=== PATIENT | male | born 1995 | race Caucasian/White ===

== ENCOUNTER 2017-06-24 12:18 | Day surgery (SDC) | payer BC ==
[2017-06-21 12:14] VITALS: BMI 27.8
[2017-06-24] VITALS (11 sets, daily range): BP systolic 99–119; BP diastolic 50–74; PULSE 64–86; RESP 11–68; Ht 172.7 cm; Wt 79.0 kg
[~2017-06-24] VITALS: Ht 172.7 cm; Wt 79.0 kg
[~2017-06-24 12:18] MED LIST: CEFAZOLIN 1 GM INJ ONE; CEFAZOLIN 2 GM/50 ML (PMX) 50 ML IVPB SCH; SOD CHLORIDE 0.9% 1,000 ML IV SCH
[2017-06-24] MEDS ORDERED: BUPIVACAINE 0.25% (MPF) 30 ML INJ ONE (13:29)
[2017-06-24] MEDS ORDERED: ESOM20CA PO (13:42)
[2017-06-24] MEDS ORDERED: PROPOFOL 20 ML ONE (15:10)
[2017-06-24] MEDS ORDERED: ROCURONIUM 50 MG INJ ONE (15:10)
[2017-06-24] MEDS ORDERED: MIDAZOLAM 1 MG/ML 2 ML INJ ONE (15:18)
[2017-06-24] MEDS ORDERED: DIPHENHYDRAMINE 50 MG INJ ONE (15:18)
[2017-06-24] MEDS ORDERED: FENTAnyl 50 MCG/ML VIAL ONE ×2 (15:18→15:32)
[2017-06-24] MEDS ORDERED: KETOROLAC 30 MG INJ ONE (15:28)
[2017-06-24] MEDS ORDERED: ONDANSETRON 4 MG INJ ONE (15:28)
[2017-06-24] MEDS ORDERED: METOCLOPRAMIDE 10 MG INJ ONE (15:28)
[2017-06-24] MEDS ORDERED: DEXAMETHASONE 4 MG/ML 1 ML INJ ONE (15:29)
[2017-06-24] MEDS ORDERED: ONDANSETRON 4 MG INJ IV PRN (15:30)
[2017-06-24] MEDS ORDERED: OXYCODONE/ACETAMINOPHEN (5/325) TAB PO PRN ×2 (15:30)
[2017-06-24] MEDS ORDERED: MEPERIDINE 25 MG INJ IV PRN (15:30)
[2017-06-24] MEDS ORDERED: LABETALOL HCL 20MG INJ IV PRN (15:30)
[2017-06-24] MEDS ORDERED: EPHEDrine SULFATE 50 MG/5 ML SYG IV PRN (15:30)
[2017-06-24] MEDS ORDERED: DIPHENHYDRAMINE 50 MG INJ IV PRN (15:30)
[2017-06-24] MEDS ORDERED: FENTAnyl 50 MCG/ML VIAL IV PRN ×3 (15:30)
[2017-06-24] MEDS ORDERED: METOCLOPRAMIDE 10 MG INJ IV PRN (15:30)
[2017-06-24] MEDS ORDERED: HYDROmorphONE (0.2 MG/ML) 10ML SYG IV PRN ×3 (15:30)
[2017-06-24] MEDS ORDERED: SUGAMMADEX SODIUM 200 MG/2 ML VIAL IV ONE (15:48)
--- NOTE | 2017-06-24 15:57 | OPR ---
Date/Time of Note Date/Time of Note DATE: 06/24/17 TIME: 15:53 Operative Report Procedure Date: Jun 24, 2017 Preoperative Diagnosis pilonidal cyst Postoperative Diagnosis infected pilonidal cyst with abscess pocket Operation Performed 1. pilonidal cystectomy 12 cm incision and 12 x 6 cm mass 2. localized adjacent tissue transfer with the use of skin flaps 72 sq cm defect 3. incision and drainage of abscess 4. therapeutic injection of subcutaneous marcaine cpt code [id number] Surgeon: Sohail JUAREZ Anesthesia Type: general Estimated Blood Loss: 0 - 10 ml's Specimens pilonidal cyst Grafts/Implants: none Complications: no Indications This is a 21-year-old male with a large spinal cyst. He appears to have abscess pocket. Request surgical excision risks alternatives benefits and percent were discussed the patient. Patient expresses understanding consents to the operation. Procedure Description She is taken to the OR and prepped and draped in usual sterile fashion. Surgical timeout was performed. IV antibiotics given. Using a 10 blade elliptical incision is made over the large pilonidal cyst. Dissection cautery was carried onto the base. Upon examination there was a abscess pocket. This area was incised and drained and irrigated thoroughly out. Hemostasis was established. This left a large tissue defect. Localized adjacent tissue transfer with these of skin flaps was performed. Closure and was in a multilayer fashion with interrupted 2-0 Vicryl and interrupted 2-0 nylon for the skin. Subcutaneous therapeutic Marcaine was injected throughout the incision site. Dry dressings were applied Sohail JUAREZ Jun 24, 2017 15:57
[2017-06-24] MEDS ORDERED: MEPERIDINE 100 MG INJ ONE (16:00)
[2017-06-24] MEDS ORDERED: AMOXICILLIN/CLAV 875 MG TAB PO ONE (16:00)
[2017-06-24] MEDS ORDERED: HYDROCODONE/APAP (5/325) TAB PO ONE (16:00)
== END 2017-06-24 17:20 | disposition home or self-care (01) ==
LOC: SDS 12:18
PROVIDERS: ATTEND Surgery
DX: L05.01 Pilonidal cyst with abscess (principal)
CPT/HCPCS: 11772; 88304; J0690; J1100; J1200; J1885; J2175; J2250; J2405; J2765; J3010; Z7512; Z7610

== ENCOUNTER 2017-08-02 21:46 | Emergency (ER) | payer BC ==
[~2017-08-02] VITALS: Ht 177.8 cm; Wt 79.5 kg
[~2017-08-02 21:46] MED LIST changes: -CEFAZOLIN 1 GM INJ ONE; -CEFAZOLIN 2 GM/50 ML (PMX) 50 ML IVPB SCH; +ESOM20CA PO; -SOD CHLORIDE 0.9% 1,000 ML IV SCH
[2017-08-02 21:50] VITALS: Ht 177.8 cm; Wt 79.5 kg
[2017-08-02] MEDS ORDERED: LIDOCAINE 2%/EPI MPF (SDV) 20 ML VIAL INJ STA (22:55)
[2017-08-02] MEDS ORDERED: CEPH-443 PO (23:19)
[2017-08-02] MEDS ORDERED: SULF1TAB31 PO (23:19)
--- NOTE | 2017-08-02 23:21 | ERD ---
ER Documentation Chief Complaint Date/Time DATE: 08/02/17 TIME: 23:20 Chief Complaint wound check lower back HPI 21-year-old male brought in by mother complaining of area of redness and swelling to the lower back for 3 days. Patient states his been pus draining from it. No fever. Area is tender when touched. No nausea or vomiting. No changes to bowel movements. ROS All systems reviewed and are negative except as per history of present illness. Medications Home Meds Active Scripts Cephalexin* (Keflex*) 500 Mg Capsule, 500 MG PO QID for 7 Days, CAP Prov:MARLENY BERMEO PA-C 08/02/17 Sulfamethoxazole/Trimethoprim* (Bactrim Ds* Tablet) 1 Each Tablet, 1 TAB PO BID , #14 TAB Prov:MARLENY BERMEO PA-C 08/02/17 Reported Medications Esomeprazole Mag Trihydrate (Nexium) 20 Mg Capsule.dr, 20 MG PO DAILY, #30 CAP 06/24/17 Allergies Allergies: Coded Allergies: No Known Allergy (Unverified , 06/17/13) PMhx/Soc History of Surgery: Yes (appendectomy) Anesthesia Reaction: No Hx Neurological Disorder: No Hx Respiratory Disorders: No Hx Cardiac Disorders: No Hx Psychiatric Problems: No Hx Miscellaneous Medical Probl: No Hx Alcohol Use: No Hx Substance Use: No Hx Tobacco Use: No Smoking Status: Never smoker FmHx Family History: No diabetes Physical Exam Vitals Vital Signs Date Time Temp Pulse Resp B/P Pulse Ox O2 Delivery O2 Flow Rate FiO2 08/02/17 21:50 97.8 86 20 124/79 98 Physical Exam Const: [] Head: Atraumatic Eyes: Normal Conjunctiva ENT: Normal External Ears, Nose and Mouth. Neck: Full range of motion..~ No meningismus. Resp: Clear to auscultation bilaterally Cardio: Regular rate and rhythm, no murmurs Abd: Soft, non tender, non distended. Normal bowel sounds Skin: Pilonidal cyst approximately 2-3 cm in diameter without significant surrounding erythema Results 24 hrs Current Medications Medications (Trade) Dose Ordered Sig/Meryl Route PRN Reason Start Time Stop Time Status Last Admin Dose Admin Lidocaine/ Epinephrine (Xylocaine 2%/ Epi Mpf(Sdv)) 20 ml ONCE STAT INJ 08/02/17 22:55 08/02/17 22:56 DC Procedures/MDM The abscess was infiltrated with 1% Lidocaine for local anesthesia. A scalpel was then used to incise the central, fluctuant area of the abscess. There was immediate pus drainage from the wound. There were no complications and pt tolerated the procedure well. The would was appropriately dressed and bandaged. Pt was given prescription for bactrim and keflex. I recommended that pt return in 2 days for a wound check. Patient counseled regarding my diagnostic impression and care plan. Prior to discharge all questions answered. Pt agrees with treatment plan and understands strict return precautions. Pt is instructed to follow up with primary care provider within 24-48 hours. Precautionary instructions provided including instructions to return to the ER if not improving or for any worsening or changing symptoms or concerns. Departure Diagnosis: Primary Impression: Pilonidal cyst Condition: Stable Patient Instructions: Pilonidal Cyst Additional Instructions: Call your primary care doctor TOMORROW for an appointment during the next 1-2 days.See the doctor sooner or return here if your condition worsens before your appointment time. MARLENY BERMEO PA-C Aug 02, 2017 23:21
== END 2017-08-02 23:27 | disposition home or self-care (01) ==
LOC: FTE 21:46
DX: L05.01 Pilonidal cyst with abscess (principal)
CPT/HCPCS: 10080; Z7502; Z7610

== ENCOUNTER 2017-10-11 08:45 | Day surgery (SDC) | payer BC ==
[2017-10-10 14:11] VITALS: BMI 26.8
[~2017-10-11] VITALS: Ht 172.7 cm; Wt 80.8 kg
[2017-10-11] VITALS (7 sets, daily range): BP systolic 124–151; BP diastolic 66–76; PULSE 74–104; RESP 12–20; Ht 172.7 cm; Wt 80.8 kg
[~2017-10-11 08:45] MED LIST changes: +CEFAZOLIN 1 GM/50 ML (PMX) 50 ML IVPB ONE; +CEPH-443 PO; +SOD CHLORIDE 0.9% 1,000 ML IV SCH; +SULF1TAB31 PO
[2017-10-11 10:56] LABS: BASOPHILS % 0.5 % (0.0-2.0); EOSINOPHILS # 0.1 10^3/ul (0.0-0.5); EOSINOPHILS % 0.9 % (0.0-7.0); HEMATOCRIT 45.4 % (42.0-52.0); LYMPHOCYTES # 2.4 10^3/ul (0.8-2.9); MEAN CORPUSCULAR HEMOGLOBIN 31.3 pg (29.0-33.0); MEAN CORPUSCULAR HGB CONC 35.2 g/dl (32.0-37.0); MEAN CORPUSCULAR VOLUME 88.8 fl (72.0-104.0); MEAN PLATELET VOLUME 11.1 fl (7.4-10.4); MONOCYTE # 0.7 10^3/ul (0.3-0.9); MONOCYTES % 8.5 % (0.0-13.0); NEUTROPHIL # 4.5 10^3/ul (1.6-7.5); NEUTROPHILS % 58.7 % (30.0-74.0); PLATELET COUNT 189 10^3/UL (140-415); RED BLOOD COUNT 5.11 10^6/ul (4.70-6.10); WHITE BLOOD COUNT 7.6 10^3/ul (4.8-10.8)
[2017-10-11 10:59] LABS: INR 1.15; PROTIME 14.9 Sec (11.9-14.9); PT RATIO 1.2
[2017-10-11 11:00] LABS: PARTIAL THROMBOPLASTIN TIME 26.4 Sec (25.0-35.0)
[2017-10-11 11:04] LABS: ALBUMIN 4.2 g/dl (3.3-4.9); ALBUMIN/GLOBULIN RATIO 1.35; BILIRUBIN,INDIRECT 0.3 mg/dl (0-1.1); BILIRUBIN,TOTAL 0.3 mg/dl (0.2-1.3); TOTAL PROTEIN 7.3 g/dl (6.1-8.1)
[2017-10-11 11:18] LABS: CALCIUM 9.5 mg/dl (8.4-10.2); CREATININE 1.17 mg/dl (0.61-1.24); POTASSIUM 3.6 mmol/L (3.5-5.1)
[2017-10-11] MEDS ORDERED: FENTAnyl 50 MCG/ML VIAL ONE (11:29)
[2017-10-11] MEDS ORDERED: MIDAZOLAM 1 MG/ML 2 ML INJ ONE ×2 (11:29→12:18)
[2017-10-11] MEDS ORDERED: SUCCINYLCHOLINE CHLORIDE 100 MG/5 ML SYG IV ONE (11:29)
[2017-10-11] MEDS ORDERED: PROPOFOL 20 ML ONE (11:29)
[2017-10-11] MEDS ORDERED: LIDOCAINE 2% (SDV) 5 ML INJ ONE (11:29)
[2017-10-11] MEDS ORDERED: BUPIVACAINE 0.5%/EPI (SDV) 30 ML INJ ONE (11:55)
[2017-10-11] MEDS ORDERED: ONDANSETRON 4 MG INJ ONE (12:41)
[2017-10-11] MEDS ORDERED: DEXAMETHASONE 4 MG/ML 1 ML INJ ONE (12:41)
[2017-10-11] MEDS ORDERED: CEFAZOLIN 1 GM INJ ONE (12:41)
[2017-10-11] MEDS ORDERED: HYDROmorphONE 2 MG/ML SYG ONE (12:44)
--- NOTE | 2017-10-11 13:13 | SIPON ---
Date/Time of Note Date/Time of Note DATE: 10/11/17 TIME: 13:04 Operative Report Preoperative Diagnosis Recurrent pilonidal abscess Postoperative Diagnosis Same Operation/Procedure Performed Incision and drainage of recurrent pilonidal abscess Surgeon see signature line assistant center manager Dr Braxton Anesthesia: general Estimated blood loss: none Transfusion Required none Specimen None Grafts/Implants none Complications none IVETTE ALVAREZ MD Oct 11, 2017 13:13
[2017-10-11] MEDS ORDERED: NALOXONE (0.4 MG/ML) INJ ONE (13:18)
[2017-10-11] MEDS ORDERED: OXYCODONE/ACETAMINOPHEN (5/325) TAB PO PRN ×2 (13:30)
[2017-10-11] MEDS ORDERED: HYDROmorphONE (0.2 MG/ML) 10ML SYG IV PRN ×3 (13:30)
[2017-10-11] MEDS ORDERED: KETOROLAC 30 MG INJ IV PRN (13:30)
[2017-10-11] MEDS ORDERED: MEPERIDINE 25 MG INJ IV PRN (13:30)
[2017-10-11] MEDS ORDERED: ONDANSETRON 4 MG INJ IV PRN (13:30)
[2017-10-11] MEDS ORDERED: METOCLOPRAMIDE 10 MG INJ IV PRN (13:30)
--- NOTE | 2017-10-12 02:20 | OPR ---
DATE OF OPERATION: 10/11/2017 PREOPERATIVE DIAGNOSIS: Pilonidal abscess. POSTOPERATIVE DIAGNOSIS: Pilonidal abscess. OPERATION PERFORMED: Incision and drainage of pilonidal abscess. ANESTHESIA: General. ANESTHESIOLOGIST: Nurse house principal Kamlesh ____. SURGEON: Odin Nicolas MD CHIP MIXING MACHINE OPERATOR: Dr. Braxton. INDICATIONS FOR PROCEDURE: The patient is a 22-year-old male who had previously undergone excision of a pilonidal abscess by another surgeon; however, he developed a recurrence and was seen by Dr. Skylar edwards. He and his family were counseled on his need for incision and drainage. They consented and he was scheduled for surgery. DESCRIPTION OF PROCEDURE: The patient was brought to the operating theater, placed under general en dotracheal tube anesthesia. He was then placed in the prone jackknife position. The buttocks were widely shaved, taped, prepped and draped in usual sterile fashion. There is a long sinus tract note d with openings and drainage superiorly and a second opening with drainage at least 6 cm inferiorly. An incision was made in the midline of the buttocks and subcutaneous tissue was dissected with cau shikha. Copious amounts of necrotic debris and hair were encountered. They were sharply debrided. A fter complete debridement of all nonviable tissue. Bleeding was controlled with cautery. The wound was then irrigated with both hydrogen peroxide and Betadine. The area was infiltrated with 1% lido shaista local anesthetic with epinephrine. It was then packed with a wet to dry dressing. The patien t tolerated the procedure well. The estimated blood loss was approximately 20 mL. There were no co mplications and the patient was transported in stable condition to the recovery room. Dictated By: ODIN NICOLAS MD TL/NTS Conf#: [id number] DID#: [id number]
== END 2017-10-11 15:48 | disposition home or self-care (01) ==
LOC: SDS 08:45
PROVIDERS: ATTEND Surgery Surgical Oncology
DX: L05.01 Pilonidal cyst with abscess (principal)
CPT/HCPCS: 10080; 80053; 85025; 85610; 85730; J0690; J1100; J1170; J2175; J2250; J2405; J3010; Z7512; Z7610; J2310